=== PATIENT | male | born 1945 | race Caucasian/White ===

== ENCOUNTER 2016-05-08 10:48 | Emergency (ER) | payer OTHER ==
[~2016-05-08] VITALS: Ht 180.3 cm; Wt 75.0 kg
[2016-05-08 10:50] VITALS: BP 218/102; PULSE 96; RESP 24; TEMP 97.4; O2SAT 98
--- NOTE | 2016-05-08 11:17 | PD ---
HPI Chief Complaint: GI Complaint Time Seen by Provider: 11:17 Travel History International Travel<30 days: No Contact w/Intl Traveler<30days: No Traveled to known affect area: No History of Present Illness HPI 70-year-old male with history of hypertension, COPD, CAD with stents placement, diabetes, presents to emergency department for evaluation of epigastric abdominal pain, severe, sharp, with associated nausea and vomiting since 1 AM this morning. Patient has felt febrile and chilled. Denies any diarrhea. No chest pain or tightness. No difficulty breathing. Her symptoms to report. PFSH Past Medical History Diabetes: Yes Myocardial Infarction: Yes Social History Alcohol Use: Yes Tobacco Use: Yes Allergies-Medications (Allergen,Severity, Reaction): Coded Allergies: No Known Allergies (Unverified , 05/08/16) Review of Systems Except as stated in HPI: all other systems reviewed are Neg Physical Exam Narrative GENERAL: Well-nourished male patient, lying in bed, in no acute distress. Patient has had episodes of vomiting here in triage SKIN: Warm and dry. HEAD: Atraumatic. Normocephalic. EYES: Pupils equal and round. No scleral icterus. No injection or drainage. ENT: No nasal bleeding or discharge. Mucous membranes pink and moist. NECK: Trachea midline. No JVD. CARDIOVASCULAR: Regular rate and rhythm. No murmur appreciated. RESPIRATORY: No accessory muscle use. Coarse throughout, inspiratory next 3 weeks. Breath sounds equal bilaterally. GASTROINTESTINAL: Abdomen soft, nondistended. Epigastric and left upper quadrant tenderness to palpation.. Hepatic and splenic margins not palpable. MUSCULOSKELETAL: No obvious deformities. No clubbing. No cyanosis. No edema. NEUROLOGICAL: Awake and alert. No obvious cranial nerve deficits. Motor grossly within normal limits. Normal speech. PSYCHIATRIC: Appropriate mood and affect; insight and judgment normal. Data Data Last Documented VS Vital Signs Date Time Temp Pulse Resp B/P Pulse Ox O2 Delivery O2 Flow Rate FiO2 05/08/16 13:22 98 18 131/64 98 Room Air 05/08/16 10:50 97.4 Orders Complete Blood Count With Diff (05/08/16 11:00) Urinalysis - C+S If Indicated (05/08/16 11:00) Electrocardiogram (05/08/16 ) Comprehensive Metabolic Panel (05/08/16 11:15) Ckmb (Isoenzyme) Profile (05/08/16 11:15) Prothrombin Time / Inr (Pt) (05/08/16 11:15) Act Partial Throm Time (Ptt) (05/08/16 11:15) Troponin I (05/08/16 11:15) Chest, Single Ap (05/08/16 11:15) Ondansetron Inj (Zofran Inj) (05/08/16 11:30) Lipase (05/08/16 11:05) Alcohol (Ethanol) (05/08/16 12:46) Sodium Chlor 0.9% 1000 Ml Inj (Ns 1000 M (05/08/16 13:00) Iv Access Insert/Monitor (05/08/16 12:46) Ct Abd/Pel W/O Iv Contrast (05/08/16 ) Labs Laboratory Tests Test 05/08/16 05/08/16 05/08/16 11:05 11:10 12:55 White Blood Count 11.6 TH/MM3 Red Blood Count 4.94 MIL/MM3 Hemoglobin 14.0 GM/DL Hematocrit 41.2 % Mean Corpuscular Volume 83.3 FL Mean Corpuscular Hemoglobin 28.4 PG Mean Corpuscular Hemoglobin 34.1 % Concent Red Cell Distribution Width 15.8 % Platelet Count 295 TH/MM3 Mean Platelet Volume 8.4 FL Neutrophils (%) (Auto) 91.6 % Lymphocytes (%) (Auto) 5.5 % Monocytes (%) (Auto) 2.4 % Eosinophils (%) (Auto) 0.0 % Basophils (%) (Auto) 0.5 % Neutrophils # (Auto) 10.6 TH/MM3 Lymphocytes # (Auto) 0.6 TH/MM3 Monocytes # (Auto) 0.3 TH/MM3 Eosinophils # (Auto) 0.0 TH/MM3 Basophils # (Auto) 0.1 TH/MM3 CBC Comment DIFF FINAL Differential Comment Prothrombin Time 11.0 SEC Prothromb Time International 1.0 RATIO Ratio Activated Partial 23.5 SEC Thromboplast Time Sodium Level 132 MEQ/L Potassium Level 3.8 MEQ/L Chloride Level 91 MEQ/L Carbon Dioxide Level 23.7 MEQ/L Anion Gap 17 MEQ/L Blood Urea Nitrogen 20 MG/DL Creatinine 1.07 MG/DL Estimat Glomerular Filtration 68 ML/MIN Rate Random Glucose 338 MG/DL Calcium Level 9.3 MG/DL Total Bilirubin 1.1 MG/DL Aspartate Amino Transf 13 U/L (AST/SGOT) Alanine Aminotransferase 24 U/L (ALT/SGPT) Alkaline Phosphatase 91 U/L Total Creatine Kinase 68 U/L Troponin I LESS THAN 0.02 NG/ML Total Protein 7.9 GM/DL Albumin 4.1 GM/DL Lipase 121 U/L Urine Color LIGHT-YELLOW Urine Turbidity CLEAR Urine pH 6.0 Urine Specific Zimmerman 1.017 Urine Protein 100 mg/dL Urine Glucose (UA) 1000 mg/dL Urine Ketones 40 mg/dL Urine Occult Blood TRACE Urine Nitrite NEG Urine Bilirubin NEG Urine Urobilinogen LESS THAN 2.0 MG/DL Urine Leukocyte Esterase NEG Urine RBC 1 /hpf Urine WBC 1 /hpf Microscopic Urinalysis Comment CULT NOT INDICATED Ethyl Alcohol Level LESS THAN 3 MG/DL MDM Medical Decision Making Medical Screen Exam Complete: Yes Emergency Medical Condition: Yes Medical Record Reviewed: Yes Differential Diagnosis Pancreatitis versus gastritis versus influenza versus esophagitis versus electrolyte abnormality Narrative Course 70-year-old male presents to emergency department. Workup was initiated in triage. Patient is given Zofran here in the triage area. Once a medical bed becomes available, patient will be transferred. Condition: Stable BryceRozJesicamanju ADAME May 08, 2016 11:17
[2016-05-08] MEDS ORDERED: ONDANSETRON HCL 4 MG/2 ML VIAL IM ONE (11:30)
[2016-05-08 11:37] LABS: BLOOD, URINE TRACE (NEG); GLUCOSE,URINE 1000 mg/dL (NEG); KETONE, URINE 40 mg/dL (NEG); NITRITE,URINE NEG (NEG); URINE COLOR LIGHT-YELLOW (YELLW/STRAW)
[2016-05-08 11:38] LABS: COMMENT (UR) CULT NOT INDICATED; CULTURE IF INDICATED CULT NOT INDICATED
[2016-05-08 11:41] LABS: AUTOMATED NEUTROPHIL # 10.6 TH/MM3 (1.8-7.7); BASOPHIL # 0.1 TH/MM3 (0-0.2); BASOPHIL % 0.5 % (0.0-2.0); HEMATOCRIT 41.2 % (39.0-51.0); HEMO FLAGS DIFF FINAL; LYMPH % 5.5 % (9.0-44.0); LYMPHOCYTE # 0.6 TH/MM3 (1.0-4.8); MEAN CELL VOLUME 83.3 FL (80.0-100.0); MEAN CORPUSCULAR HEMOGLOBIN 28.4 PG (27.0-34.0); MEAN CORPUSCULAR HGB CONC 34.1 % (32.0-36.0); MONO % 2.4 % (0.0-8.0); NEUT % 91.6 % (16.0-70.0); PLATELET COUNT 295 TH/MM3 (150-450); RED BLOOD COUNT 4.94 MIL/MM3 (4.50-5.90); RED CELL DISTRIBUTION WIDTH 15.8 % (11.6-17.2); WHITE BLOOD COUNT 11.6 TH/MM3 (4.0-11.0)
[2016-05-08 11:47] LABS: APTT (PATIENT) 23.5 SEC (24.3-30.1)
--- NOTE | 2016-05-08 11:56 | RADRPT ---
EXAM DATE/TIME: 05/08/2016 11:42 [facility] COMPARISON: No previous studies available for comparison. INDICATIONS : Chest pain. MEDICAL HISTORY : None. SURGICAL HISTORY : Pacemaker. ENCOUNTER: Initial ACUITY: 1 day PAIN SCORE: 0/10 LOCATION: Bilateral chest FINDINGS: A single view of the chest demonstrates the lungs to be symmetrically aerated without evidence of mas s, infiltrate or effusion. The cardiomediastinal contours are unremarkable. Osseous structures are intact. There is a bipolar pacemaker overlying the left hemithorax. Evidence of prior granulomatous d isease peripheral calcified granuloma left midlung field and small calcified left hilar lymph nodes. CONCLUSION: No acute disease. Edison Leon MD on May 08, 2016 at 11:54 Board Certified Radiologist. This report was verified electronically.
[2016-05-08 11:58] LABS: ANION GAP 17 MEQ/L (5-15); AST (GOT) 13 U/L (15-37); BICARBONATE 23.7 MEQ/L (21.0-32.0); BLOOD UREA NITROGEN 20 MG/DL (7-18); CHLORIDE 91 MEQ/L (98-107); GLOMERULAR FILTRATION RATE 68 ML/MIN (>89); POTASSIUM 3.8 MEQ/L (3.5-5.1); SODIUM (NA) 132 MEQ/L (136-145)
[2016-05-08 12:03] LABS: ALKALINE PHOSPHATASE 91 U/L (45-117); ALT (GPT) 24 U/L (12-78); TOTAL BILIRUBIN ADULT 1.1 MG/DL (0.2-1.0)
[2016-05-08 12:06] LABS: CREATINE KINASE 68 U/L (39-308)
[2016-05-08] MEDS ORDERED: SODIUM CHLOR 0.9% 1000 ML INJ 1,000 ML IV ONE (13:00)
[2016-05-08 13:22] VITALS: BP 131/64; PULSE 98; RESP 18; O2SAT 98
[2016-05-08] MEDS ORDERED: PANT40TA3 PO (13:42)
[2016-05-08] MEDS ORDERED: ONDA1TAB16 PO (13:42)
[2016-05-08] MEDS ORDERED: VIAG100T PO (13:42)
[2016-05-08] MEDS ORDERED: LANTUS2P SQ (13:42)
[2016-05-08] MEDS ORDERED: PERC5TAB12 PO (13:42)
[2016-05-08] MEDS ORDERED: METO50TA PO (13:42)
[2016-05-08] MEDS ORDERED: GABA400C5 PO (13:42)
[2016-05-08] MEDS ORDERED: SYMB160A INH (13:42)
[2016-05-08] MEDS ORDERED: GLIP5TAB8 PO (13:42)
[2016-05-08] MEDS ORDERED: TRIA.1%T TOPICAL (13:42)
[2016-05-08] MEDS ORDERED: VENTAER INH (13:42)
[2016-05-08] MEDS ORDERED: IPRA17I INH (13:42)
[2016-05-08] MEDS ORDERED: ATOR1TAB18 PO (13:42)
[2016-05-08] MEDS ORDERED: ASPI1TAB69 PO (13:42)
[2016-05-08] MEDS ORDERED: PRAS10TA PO (13:42)
[2016-05-08] MEDS ORDERED: METF1000 PO (13:42)
[2016-05-08] MEDS ORDERED: LISI-515 PO (13:42)
--- NOTE | 2016-05-08 14:46 | PD ---
Physical Exam Narrative GENERAL: Well-nourished, well-developed patient. SKIN: Warm and dry. HEAD: Normocephalic and atraumatic. EYES: No injection or drainage. ENT: No nasal drainage noted. NECK: Supple, trachea midline. CARDIOVASCULAR: Regular rate and rhythm RESPIRATORY: Breath sounds equal bilaterally. No accessory muscle use. GASTROINTESTINAL: Abdomen soft, non-tender, nondistended. EXTREMITIES: No edema. BACK: Nontender without obvious deformity in midline, no CVA tenderness. NEUROLOGICAL: Awake and alert. Motor and sensory grossly within normal limits. Normal speech. Data Data Last Documented VS Vital Signs Date Time Temp Pulse Resp B/P Pulse Ox O2 Delivery O2 Flow Rate FiO2 05/08/16 15:43 76 18 189/71 94 05/08/16 13:22 Room Air 05/08/16 10:50 97.4 Orders Complete Blood Count With Diff (05/08/16 11:00) Urinalysis - C+S If Indicated (05/08/16 11:00) Electrocardiogram (05/08/16 ) Comprehensive Metabolic Panel (05/08/16 11:15) Ckmb (Isoenzyme) Profile (05/08/16 11:15) Prothrombin Time / Inr (Pt) (05/08/16 11:15) Act Partial Throm Time (Ptt) (05/08/16 11:15) Troponin I (05/08/16 11:15) Chest, Single Ap (05/08/16 11:15) Ondansetron Inj (Zofran Inj) (05/08/16 11:30) Lipase (05/08/16 11:05) Alcohol (Ethanol) (05/08/16 12:46) Sodium Chlor 0.9% 1000 Ml Inj (Ns 1000 M (05/08/16 13:00) Iv Access Insert/Monitor (05/08/16 12:46) Ct Abd/Pel W/O Iv Contrast (05/08/16 ) Labs Laboratory Tests Test 05/08/16 05/08/16 05/08/16 11:05 11:10 12:55 White Blood Count 11.6 TH/MM3 Red Blood Count 4.94 MIL/MM3 Hemoglobin 14.0 GM/DL Hematocrit 41.2 % Mean Corpuscular Volume 83.3 FL Mean Corpuscular Hemoglobin 28.4 PG Mean Corpuscular Hemoglobin 34.1 % Concent Red Cell Distribution Width 15.8 % Platelet Count 295 TH/MM3 Mean Platelet Volume 8.4 FL Neutrophils (%) (Auto) 91.6 % Lymphocytes (%) (Auto) 5.5 % Monocytes (%) (Auto) 2.4 % Eosinophils (%) (Auto) 0.0 % Basophils (%) (Auto) 0.5 % Neutrophils # (Auto) 10.6 TH/MM3 Lymphocytes # (Auto) 0.6 TH/MM3 Monocytes # (Auto) 0.3 TH/MM3 Eosinophils # (Auto) 0.0 TH/MM3 Basophils # (Auto) 0.1 TH/MM3 CBC Comment DIFF FINAL Differential Comment Prothrombin Time 11.0 SEC Prothromb Time International 1.0 RATIO Ratio Activated Partial 23.5 SEC Thromboplast Time Sodium Level 132 MEQ/L Potassium Level 3.8 MEQ/L Chloride Level 91 MEQ/L Carbon Dioxide Level 23.7 MEQ/L Anion Gap 17 MEQ/L Blood Urea Nitrogen 20 MG/DL Creatinine 1.07 MG/DL Estimat Glomerular Filtration 68 ML/MIN Rate Random Glucose 338 MG/DL Calcium Level 9.3 MG/DL Total Bilirubin 1.1 MG/DL Aspartate Amino Transf 13 U/L (AST/SGOT) Alanine Aminotransferase 24 U/L (ALT/SGPT) Alkaline Phosphatase 91 U/L Total Creatine Kinase 68 U/L Troponin I LESS THAN 0.02 NG/ML Total Protein 7.9 GM/DL Albumin 4.1 GM/DL Lipase 121 U/L Urine Color LIGHT-YELLOW Urine Turbidity CLEAR Urine pH 6.0 Urine Specific Stevenson 1.017 Urine Protein 100 mg/dL Urine Glucose (UA) 1000 mg/dL Urine Ketones 40 mg/dL Urine Occult Blood TRACE Urine Nitrite NEG Urine Bilirubin NEG Urine Urobilinogen LESS THAN 2.0 MG/DL Urine Leukocyte Esterase NEG Urine RBC 1 /hpf Urine WBC 1 /hpf Microscopic Urinalysis Comment CULT NOT INDICATED Ethyl Alcohol Level LESS THAN 3 MG/DL MDM Supervised Visit with DARIN: Yes Interpretation(s) CBC & BMP Diagram 05/08/16 11:05 Last 24 hours Impressions Chest X-Ray 05/08/16 1115 Signed Impressions: Service Date/Time: Sunday, May 08, 2016 11:42 - CONCLUSION: No acute disease. Edison Leon MD Narrative Course I, Dr. remy, have reviewed the advance practice practitioner's documentation and am in agreement, met with the patient face to face, made the diagnosis, and the medical decision making was done by me. *My assessment and Findings: 70-year-old male presents through triage with intermittent low back pain and nonbloody emesis over the past couple of days. He denies any associated trauma, chest pain or other concurrent complaints. Pain is worse with movement. He states he is here visiting and has been camping. He states he has not had his blood pressure medication yet today secondary to vomiting. Will add on CT to workup ordered in triage and monitor. Repeat blood pressure has improved on own on initial assessment. ED workup without emergent findings, given copy of CAT scan for follow-up, no emesis here, no back pain here,Patient denies any new complaints and states that they are feeling better. Patient happy with care, all questions answered. Patient knows that follow up is incumbent on them and to return to the emergency room immediately if new or worsening symptoms develop. Patient given strict return precautions, vitals reviewed and are normal, agrees to further workup as an outpatient. Diagnosis Primary Impression: Vomiting Qualified Code: R11.2 - Non-intractable vomiting with nausea, unspecified vomiting type Additional Impression: Back pain Qualified Code: M54.5 - Acute bilateral low back pain without sciatica Patient Instructions: General Instructions Additional Instruction: Return as needed, Zofran as needed, Tylenol as needed for pain, follow with primary care physician this week for recheck Med/Other Pt SpecificInfo: Prescription(s) given Scripts Ondansetron Odt (Zofran Odt)4 Mg Tab4 Mg SL Q6HR PRN (Nausea/Vomiting) #10 TAB Prov:Maggie Remy MD 05/08/16 Disposition: 01 DISCHARGE HOME Condition: Stable Maggie Remy MD May 08, 2016 14:46
--- NOTE | 2016-05-08 15:16 | RADRPT ---
EXAM DATE/TIME: 05/08/2016 13:56 [facility] COMPARISON: No previous studies available for comparison. INDICATIONS : Bilateral flank pain. Epigastric pain. Nausea and vomiting. ORAL CONTRAST: No oral contrast ingested. RADIATION DOSE: 13.28 CTDIvol (mGy) MEDICAL HISTORY : Diabetes mellitus type 2. Chronic obstructive pulmonary disease. Cardiovascular diseaseHypertension. SURGICAL HISTORY : None. ENCOUNTER: Initial ACUITY: 1 day PAIN SCALE: 4/10 LOCATION: Bilateral flank TECHNIQUE: Volumetric scanning of the abdomen and pelvis was performed. Using automated exposure control and ad justment of the mA and/or kV according to patient size, radiation dose was kept as low as reasonably achievable to obtain optimal diagnostic quality images. FINDINGS: LOWER LUNGS: The visualized lower lungs are clear. LIVER: Homogeneous density without lesion. There is no dilation of the biliary tree. No calcified gallston es. Gallbladder seems a little structure without wall thickening or stones SPLEEN: Normal size without lesion. Punctate calcifications consistent with prior granulomatous disease. PANCREAS: Within normal limits. KIDNEYS: Normal in size and shape. There is no mass, stone, or hydronephrosis. ADRENAL GLANDS: Within normal limits. VASCULAR: There is no aortic aneurysm. BOWEL/MESENTERY: The stomach, small bowel, and colon demonstrate no acute abnormality. There is no free intraperitone al air or fluid. ABDOMINAL WALL: Within normal limits. RETROPERITONEUM: There is no lymphadenopathy. BLADDER: No wall thickening or mass. REPRODUCTIVE: Within normal limits. INGUINAL: There is no lymphadenopathy or hernia. MUSCULOSKELETAL: Degenerative changes L5-S1 narrow disc space with posterior central to left paracentral osteophyte di sc complex encroaching upon the neural foramina. CONCLUSION: Normal kidneys ureters and bladder with no evidence of renal or ureteral calculi or obstructive uropa thy. Degenerative disc disease L5-S1 with central left pa racentral protruding osteophyte disc complex Edison Leon MD on May 08, 2016 at 15:11 Board Certified Radiologist. This report was verified electronically.
[2016-05-08] MEDS ORDERED: ZOFR4TAB3 SL (15:22)
[2016-05-08 15:43] VITALS: BP 189/71
--- NOTE | 2016-05-09 16:13 | EKG ---
Date Performed: 05/08/2016 Time Performed: 11:21:25 PTAGE: 70 years EKG: Sinus rhythm POSSIBLE LEFT ATRIAL ENLARGEMENT LEFT ANTERIOR FASCICULAR BLOCK POSSIBLE LEFT VENTRICULAR HYPERTROPH Y INFERIOR MYOCARDIAL INFARCTION ABNORMAL ECG NO PREVIOUS TRACING DOCTOR: Alvin Orourke Interpretating Date/Time 05/09/2016 16:11:46
== END 2016-05-08 15:57 | disposition home or self-care (01) ==
LOC: NEPE 10:48
DX: R11.10 Vomiting, unspecified (principal); M54.5 Low back pain; E11.9 Type 2 diabetes mellitus without complications; I25.2 Old myocardial infarction; Z72.0 Tobacco use
CPT/HCPCS: 71010; 74176; 80053; 80320; 81001; 82550; 83690; 84484; 85025; 85610; 85730; 93005; 96360; 96372; 99284; J2405; J7030